=== PATIENT | male | born 1965 | race Two or more races ===

== ENCOUNTER 2022-03-14 18:34 | Emergency (ER) | payer MEDICARE, MEDICAID ==
[~2022-03-14] VITALS: Ht 180.3 cm; Wt 81.6 kg
[2022-03-14 19:40] VITALS: BP 136/79
[2022-03-14] MEDS ORDERED: LIDOCAINE 1% HCL (LOCAL ANESTH.) INJ 20ML MDV ID ONE (21:15)
[2022-03-14] MEDS ORDERED: BACITRACIN TOP OINT 1 UD PKG TOP ONE (21:15)
[2022-03-14] MEDS ORDERED: TETANUS-DIPTH-ACEL PERTUSSIS 0.5ML SYR Tdap IM ONE (21:15)
[2022-03-14] MEDS ORDERED: LIDOCAINE 1%HCL (LOCAL ANESTH) 10 ML MDV ONE ×2 (21:18→21:20)
[2022-03-14] MEDS ORDERED: LORazepam 2MG/ML-1ML VIAL IM ONE (22:15)
[2022-03-14] MEDS ORDERED: diphenhdrAMINE HCL 50 MG/1 ML VL IM ONE (22:15)
[2022-03-15] MEDS ORDERED: CEPHALEXIN 250 MG CAP PO ONE
== END 2022-03-15 00:45 | disposition home or self-care (01) ==
LOC: ER 18:34 → EDBD 18:34 → ER 03-15 00:45
DX: S51.011A Laceration without foreign body of right elbow, initial encounter (principal); W26.8XXA Contact with other sharp object(s), not elsewhere classified, initial encounter; Y93.89 Activity, other specified; Y92.89 Other specified places as the place of occurrence of the external cause; Y99.8 Other external cause status
CPT/HCPCS: 12005; 73080; 90471; 90715; 96372; 99284; J1200; J2001; J2060